=== PATIENT | female | born 1960 | race Caucasian/White ===

== ENCOUNTER 2017-12-22 13:12 | Emergency (ER) | payer OTHER ==
--- NOTE | 2017-12-22 13:28 | EDM.PDOC ---
ED HPI GENERAL MEDICAL PROBLEM - General Chief Complaint: Genitourinary Problem Stated Complaint: PAIN, LOWER BACK, ? KIDNEY STONE Time Seen by Provider: 12/22/17 13:26 Source of Information: Reports: Patient, RN, RN Notes Reviewed History Limitations: Reports: No Limitations - History of Present Illness INITIAL COMMENTS - FREE TEXT/NARRATIVE: C/O severe low back/flank pain that began suddenly last night. Pt worried she might have a kidney stone. The pain caused the pt to be nauseated and she has vomited several times. Denies fever or chill. Onset: Sudden Onset Date: 12/21/17 Duration: Getting Worse, Intermittent, Waxing/Waning Location: Reports: Back Quality: Reports: Ache Severity: Severe Improves with: Reports: None Worsens with: Reports: None Associated Symptoms: Reports: No Other Symptoms Right Flank Pain Score (Numeric/FACES): 8 - Related Data Allergies Allergy/AdvReac Type Severity Reaction Status Date / Time No Known Allergies Allergy Verified 12/22/17 13:22 Home Meds: Home Meds . [No Known Home Meds] 12/22/17 [History] Past Medical History Genitourinary History: Reports: Renal Calculus Other Genitourinary History: during - Infectious Disease History Infectious Disease History: Reports: Chicken Pox - Past Surgical History HEENT Surgical History: Reports: Tonsillectomy, Other (See Below) Other HEENT Surgeries/Procedures: hx ear surgery in 2016 Social & Family History - Family History Family Medical History: Noncontributory - Tobacco Use Smoking Status *Q: Never Smoker Second Hand Smoke Exposure: No - Caffeine Use Caffeine Use: Reports: None - Recreational Drug Use Recreational Drug Use: No - Living Situation & Occupation Living situation: Reports: with Family ED ROS GENERAL - Review of Systems Review Of Systems: ROS reveals no pertinent complaints other than HPI. ED EXAM, RENAL/ - Physical Exam Exam: See Below Exam Limited By: No Limitations General Appearance: Alert, WD/WN, No Apparent Distress Throat/Mouth: Normal Inspection Head: Atraumatic, Normocephalic Neck: Normal Inspection Respiratory/Chest: No Respiratory Distress, Lungs Clear, Normal Breath Sounds, No Accessory Muscle Use, Chest Non-Tender Cardiovascular: Regular Rate, Rhythm, No Edema GI/Abdominal: Normal Bowel Sounds, Soft, No Distention, No Abnormal Bruit, Tender (mild RUQ tenderness). No: Guarding, Rigid, Rebound (Female) Exam: Deferred Rectal (Female) Exam: Deferred Back Exam: Normal Inspection, Full Range of Motion. No: CVA Tenderness (L), CVA Tenderness (R) Extremities: Normal Inspection Neurological: Alert, Oriented, No Motor/Sensory Deficits Psychiatric: Normal Affect, Normal Mood Skin Exam: Warm, Dry, Intact, Normal Color, No Rash Course - Vital Signs Last Recorded V/S: Last Vital Signs Temp 37.1 C 12/22/17 16:34 Pulse 71 12/22/17 16:34 Resp 16 12/22/17 16:34 BP 126/68 12/22/17 16:34 Pulse Ox 99 12/22/17 16:34 - Orders/Labs/Meds Orders: Active Orders 24 hr Category Date Time Status Peripheral IV Care [RC] . DIRECTED Care 12/22/17 13:32 Active UA W/MICROSCOPIC [URIN] Stat Lab 12/22/17 15:54 Ordered Sodium Chloride 0.9% [Saline Flush] Med 12/22/17 13:32 Active 10 ml FLUSH ASDIRECTED PRN Peripheral IV Insertion Adult [OM.PC] Stat Oth 12/22/17 13:32 Ordered Medication Orders Sodium Chloride (Saline Flush) 10 ml FLUSH ASDIRECTED PRN PRN Reason: Keep Vein Open Last Admin: 12/22/17 13:45 Dose: 10 ml Labs: Laboratory Tests 12/22/17 12/22/17 12/22/17 Range/Units 13:38 13:38 15:54 WBC 11.4 H (5.0-10.0) 10^3/uL RBC 4.28 (4.2-5.4) 10^6/uL Hgb 13.0 (12.0-16.0) g/dL Hct 39.5 (37.0-47.0) % MCV 92.3 (80-100) fL MCH 30.4 (27.0-34.0) pg MCHC 32.9 L (33.0-35.0) g/dL Plt Count 283 (150-450) 10^3/uL Neut % (Auto) 81.8 H (42.2-75.2) % Lymph % (Auto) 12.4 L (20.5-50.1) % [place] % (Auto) 4.7 (2-8) % Eos % (Auto) 0.7 L (1.0-3.0) % Baso % (Auto) 0.4 (0.0-1.0) % Sodium 143 (135-145) mmol/L Potassium 3.7 (3.6-5.0) mmol/L Chloride 107 (101-111) mmol/L Carbon Dioxide 28.0 (21.0-31.0) mmol/L Anion Gap 11.7 BUN 26 H (7-18) mg/dL Creatinine 1.0 (0.6-1.3) mg/dL Est Cr Clr Drug Dosing 61.09 mL/min Estimated GFR (MDRD) 57 BUN/Creatinine Ratio 26.00 Glucose 112 H (74-105) mg/dL Calcium 9.0 (8.4-10.2) mg/dl Total Bilirubin 1.2 H (0.2-1.0) mg/dL AST 29 (10-42) IU/L ALT 28 (10-60) IU/L Alkaline Phosphatase 71 (42-121) IU/L Total Protein 7.6 (6.7-8.2) g/dl Albumin 4.2 (3.2-5.5) g/dl Globulin 3.4 Albumin/Globulin Ratio 1.24 Urine Color Yellow (YELLOW) Urine Appearance Clear (CLEAR) Urine pH 7.5 (5.0-9.0) Ur Specific [place] 1.020 (1.005-1.030) Urine Protein 30 H (NEGATIVE) Urine Glucose (UA) Negative (NEGATIVE) Urine Ketones Negative (NEGATIVE) Urine Occult Blood Negative (NEGATIVE) Urine Nitrite Negative (NEGATIVE) Urine Bilirubin Negative (NEGATIVE) Urine Urobilinogen 1.0 (0.2-1.0) mg/dL Ur Leukocyte Esterase Negative (NEGATIVE) Urine RBC 5-10 H /HPF Urine WBC 0-5 (0-5/HPF) /HPF Ur Epithelial Cells Moderate H /HPF Amorphous Sediment Few (0/HPF) /HPF Urine Bacteria Few (0-FEW/HPF) /HPF Urine Mucus Rare /LPF Meds: Medications Generic Name Dose Route Start Last Admin Trade Name Freq PRN Reason Stop Dose Admin Sodium Chloride 10 ml 12/22/17 13:32 12/22/17 13:45 Saline Flush FLUSH 10 ml ASDIRECTED PRN Administration Keep Vein Open Discontinued Medications Generic Name Dose Route Start Last Admin Trade Name Susan PRN Reason Stop Dose Admin Hydromorphone HCl 1 mg 12/22/17 13:32 12/22/17 13:44 Dilaudid IVPUSH 12/22/17 13:33 1 mg ONETIME ONE Administration Sodium Chloride 1,000 mls @ 999 mls/hr 12/22/17 13:35 12/22/17 13:40 Normal Saline IV 12/22/17 14:35 999 mls/hr .BOLUS ONE Administration Ketorolac Tromethamine 30 mg 12/22/17 13:32 12/22/17 13:44 Toradol IVPUSH 12/22/17 13:33 30 mg ONETIME ONE Administration Ondansetron HCl 4 mg 12/22/17 13:32 12/22/17 13:45 Zofran IV 12/22/17 13:33 4 mg ONETIME ONE Administration - Radiology Interpretation Free Text/Narrative:: CT Abd/Pelvis: Large, nearly 2cm obstructing stone at Rt renal pelvis/UPJ, see Rad. report. Departure - Departure Time of Disposition: 14:30 Disposition: DC/Tfer to Acute Hospital 02 Condition: Serious Clinical Impression: Obstruction of right ureteropelvic junction due to stone, Kidney stone - Discharge Information Forms: ED Department Discharge, Interfacility Transfer EMTALA - My Orders Last 24 Hours: My Active Orders 12/22/17 13:32 Peripheral IV Care [RC] . DIRECTED Sodium Chloride 0.9% [Saline Flush] 10 ml FLUSH ASDIRECTED PRN Peripheral IV Insertion Adult [OM.PC] Stat 12/22/17 15:54 UA W/MICROSCOPIC [URIN] Stat - Assessment/Plan Last 24 Hours: My Active Orders 12/22/17 13:32 Peripheral IV Care [RC] . DIRECTED Sodium Chloride 0.9% [Saline Flush] 10 ml FLUSH ASDIRECTED PRN Peripheral IV Insertion Adult [OM.PC] Stat 12/22/17 15:54 UA W/MICROSCOPIC [URIN] Stat
[2017-12-22] MEDS ORDERED: HYDROmorphone 0.5 MG/0.5 ML Syringe IVPUSH ONE (13:32)
[2017-12-22] MEDS ORDERED: Ondansetron 4 MG/2 ML SDV IV ONE (13:32)
[2017-12-22] MEDS ORDERED: Sodium Chloride 0.9% 10 ML Syringe FLUSH PRN (13:32)
[2017-12-22] MEDS ORDERED: Ketorolac 30 MG/ML SDV IVPUSH ONE (13:32)
[2017-12-22] MEDS ORDERED: Sodium Chloride 0.9% 1,000 ML IV ONE (13:35)
--- NOTE | 2017-12-22 14:22 | CT ---
Clinical history: 57-year-old 160 pound female with severe right flank pain and history of "kidney st ones". Scan technique: Volume acquisition of data unenhanced CT scan of the abdomen and pelvis (kidneys/uret ers/bladder) obtained while the patient was lying supine on the Siemens multi slice scanner [place], [place]. All data archived in the PACS system for storage, reformattin g axial/sagittal/coronal planes and study. Interpretation: 1. Normal bone mineral density, height and alignment of the lower thoracic and lumbar spine. AP pelvi s and hips unremarkable. 2. Two (2) tiny punctate calyceal calcifications lower pole left kidney. No pyelocaliectasis (signs o f obstructive uropathy) on the left. 3. Multiple phlebolith-like radiopacities both sides of the pelvis but no ureterectasis no intralumin al urinary bladder stones. 4. *Two (2) distinct calcifications in the right renal pelvis. The largest near the UPJ measures 13 x 18 mm and there is associated mild pyelocaliectasis on the right (adjacent smaller stone right renal pelvis measures 7.6 x 13 mm). Another 6 mm stone with 2 tiny less than 1 mm diameter calculus lower pole right kidney. 5. Normal appendix RLQ. Normal uterus left of midline and no associated adnexal or ovarian mass lesio ns. 6. No pelvic or abdominal mass lesion, inflammatory "dirty" peritoneal fat, signs of mechanical bowel obstruction, ascites or free intraperitoneal air. Lung bases clear. 7. Gallbladder, unenhanced liver, stomach, spleen, pancreas and adrenal glands unremarkable. CONCLUSION: Bilateral nephrolithiasis (largest stone with some UPJ obstruction, on the right). Negative pancreas, gallbladder, urinary bladder, and appendix. No mechanical bowel obstruction.
== END 2017-12-22 16:45 ==
LOC: DL.ED 13:12
DX: N20.0 Calculus of kidney (principal); N13.5 Crossing vessel and stricture of ureter without hydronephrosis
CPT/HCPCS: 36415; 74176; 80053; 81001; 85025; 96365; 96375; 99285; J1170; J1885; J2405; J7030; J7050